=== PATIENT | female | born 1970 | race African-American/Black ===

== ENCOUNTER 2020-05-16 10:52 | Emergency (ER) | payer MEDICAID, OTHER ==
[~2020-05-16] VITALS: Ht 165.1 cm; Wt 75.0 kg
[2020-05-16] MEDS ORDERED: IBUPROFEN 600MG TABLET PO STA (11:29)
[2020-05-16 12:51] VITALS: BP 151/85
== END 2020-05-16 12:55 | disposition home or self-care (01) ==
LOC: ER 10:52
DX: M25.552 Pain in left hip (principal); M25.562 Pain in left knee; R03.0 Elevated blood-pressure reading, without diagnosis of hypertension; W01.0XXA Fall on same level from slipping, tripping and stumbling without subsequent striking against object, initial encounter; Y93.01 Activity, walking, marching and hiking; Y92.59 Other trade areas as the place of occurrence of the external cause
CPT/HCPCS: 73502; 73562; 93005; 99284